=== PATIENT | female | born 1940 | race Two or more races ===

== ENCOUNTER 2019-10-31 11:51 | Observation (INO) ==
[2019-10-31] MEDS ORDERED: NORMAL SALINE 1,000 ML IV ONE (12:14)
[2019-10-31 12:29] LABS: Hematocrit 33.7 % (37.0-47.0); Hemoglobin 10.4 gm/dL (12.5-16.0); Mean Cell Volume 103.4 fl (78-100); Mean Corpuscular Hemoglobin 31.9 pg (27-31); Mean Corpuscular Hgb Conc 30.9 g/dl (32-36); Mean Platelet Volume 10.1 fl (8-12.5); Neutrophil # 5.1 K/mm3 (1.3-6.0); Neutrophil % 72.2 % (42-75.0); Platelet Count 183 K/mm3 (150-450); Red Blood Count 3.26 M/mm3 (4.2-5.4); Red Cell Distribution Width 14.4 % (11.5-14.0); White Blood Count 7.1 K/mm3 (4.0-10.5)
[2019-10-31 12:43] LABS: Albumin * 3.6 gm/dl (3.4-5.0); Anion Gap 17.3 mmol/L (6.8-13.8); BUN/Creatinine Ratio 29.9 (9.0-21.6); Bilirubin, Total 0.3 mg/dL (0.0-1.1); Ca. Corrected For Albumin 9.4 mg/dL (8.4-10.2); Calcium * 9.4 mg/dL (7.9-10.9); Carbon Dioxide 22.7 mmol/L (24-32.6); Magnesium 1.9 mg/dL (1.2-2.8); Total Protein 6.7 gm/dL (6.2-8.2)
[2019-10-31 13:37] LABS: Urine Appearance Clear (CLEAR); Urine Bilirubin Negative (NEGATIVE); Urine Blood 5 /ul (NEGATIVE); Urine Color Yellow; Urine Ketone Negative (NEGATIVE); Urine Protein 30 mg/dL (NEGATIVE); Urine Urobilinogen Normal (NORMAL); Urine pH 5.5 pH (5.0-7.0)
[2019-10-31 13:38] LABS: Urine Bacteria None Seen; Urine Nitrite Negative (NEGATIVE); Urine RBC 0-5 /hpf (0-5); Urine WBC 0-5 /hpf (0-5)
--- NOTE | 2019-10-31 14:42 | ERNOTE ---
ER Female HPI Date of Service: 10/31/19 Stated Complaint: not eating,diarhea Time Seen by Provider: 10/31/19 11:59 Source: patient Exam Limitations: no limitations Immunizations: IMMUNIZATION HX Immunizations Up to Date Yes History of Influenza Vaccine No Hx Pneumococcal Vaccination No Allergies/Adverse Reactions: Allergies gabapentin Allergy (Intermediate, Verified 10/31/19 12:06) hallucinations Home Medications: HOME MEDICATIONS amlodipine 5 mg tablet 5 mg PO DAILY #90 tab 06/12/19 [Last Taken Unknown] lisinopril 40 mg tablet 40 mg PO DAILY #90 tab 06/12/19 [Last Taken Unknown] pantoprazole 40 mg tablet,delayed release 40 mg PO DAILY #30 tab 06/12/19 [Last Taken Unknown] diclofenac sodium 1 % topical gel 2 g TP QID #100 g 07/17/19 [Last Taken Unknown] folic acid 1 mg tablet 1 mg PO DAILY #90 tab 08/15/19 [Last Taken Unknown] allopurinol 100 mg tablet 100 mg PO DAILY #30 tab 09/08/19 [Last Taken Unknown] furosemide 20 mg tablet 20 mg PO DAILY #90 tab 09/08/19 [Last Taken Unknown] pregabalin 50 mg capsule 50 mg PO BID #60 cap 09/13/19 [Last Taken Unknown] sertraline 50 mg tablet 50 mg PO .COMPLEX #30 tab 09/13/19 [Last Taken Unknown] oxycodone-acetaminophen 5 mg-325 mg tablet 1 tab PO Q4H PRN #120 tab 10/31/19 [Last Taken Unknown] - History of Present Illness Narrative: Patient presents to the ED for nausea, vomiting and weight loss. She cannot eat and has been suffering from worsening weight loss. Has been undergoing w/u for vaginal bleeding with US and need for Bx. She now is vomiting. Some diarrhea. Not eating/drinking. She has chronic shoulder pain that she is complaining of but denies acute abdominal pain. Nothign seems to clearly make this better or worse. Timing: Present: constant, getting worse Quality: Present: moderate Radiation: Present: none Activities at Onset: Present: none Prior Abdominal Problems: Present: other - see narriative Modifying Factors - (Improves): Present: other - nothing Modifying Factors - (Worsens): Present: other - nothing Associated Symptoms: Present: nausea, vomiting. Absent: fever/chills Prior Treatment: Present: recently seen. Absent: currently on antibiotics Review of Systems - Review of Systems Constitutional: Absent: fever EYE: Present: no symptoms reported Respiratory: Absent: shortness of breath Cardiology: Absent: chest pain Gastrointestinal/Abdominal: Present: See HPI Genitourinary: Absent: dysuria Musculoskeletal: Present: See HPI All Other Systems: All systems neg except as marked Medical History (Last Reviewed 10/31/19 @ 14:39 by Henrik Guo MD) Anorexia (Chronic) UTI (urinary tract infection) (Acute) Diarrhea (Acute) Vaginal bleeding (Acute) Systemic lupus erythematosus (SLE) in adult (Chronic) Hyperuricemia (Chronic) Edema (Chronic) 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 History of kidney surgery Onset Date: ~04/2019 fix bleed caused by fall Family History: Family History (Last Reviewed 10/18/19 @ 12:56 by Faye Lopez LPN) Son , ago of 40 due to infections No problems noted. Social History: (Last Reviewed 10/31/19 @ 14:39 by Henrik Guo MD) Social History: household members: none number of children: 4 current occupational status: retired Highest education level completed: Associate degree: academi Service: No Tobacco: Smoking Status: Never smoker Alcohol: alcohol intake: never Substance Use: substance use type: does not use Dietary Habits: caffeine: No Physical Exam - Physical Exam General Appearance: Present: alert, no apparent distress Head Exam: Present: normal inspection, no evidence of injury Eye Exam: Normal inspection: bilateral, PERRL: bilateral Ears, Nose, Throat: Present: dry mucous membranes. Absent: pharyngeal erythema Neck: Present: normal inspection Respiratory: Present: no respiratory distress, normal breath sounds, no accessory muscle use, lungs clear Cardiovascular/Chest: Present: regular rate, rhythm Gastrointestinal/Abdominal: Present: normal bowel sounds, nontender, soft Back Exam: Absent: CVA tenderness (R), CVA tenderness (L) Extremity Exam: Present: pedal edema, other - no deformity Neurological Exam: Present: alert, no motor/sensory deficits Skin Exam: Present: normal color, warm/dry Progress - Results and Orders Patient's Lab Results:: I have reviewed the patient's lab results. - Vital Signs Patient's Vital Signs:: I have reviewed the patient's vital signs. Vital Signs: Vital Signs 10/31/19 12:03 10/31/19 13:03 10/31/19 13:33 Temperature 36.9 C Pulse Rate 64 62 63 Respiratory Rate 15 Blood Pressure 157/61 H 137/63 142/61 O2 Sat by Pulse Oximetry 99 96 97 10/31/19 14:03 Temperature Pulse Rate 61 Respiratory Rate Blood Pressure 144/63 O2 Sat by Pulse Oximetry 96 - Progress/Reassessment Chief Complaint: Genitourinary Problem Progress Note-Subjective: 10/31/19 14:40 Patient given IV fluids. Labs reviewed. Dr Cherry was in the ED and will admit the patient. patient agreeeable Departure Clinical Impression: Dehydration, Vomiting, Weight loss, Vaginal bleeding - Departure Disposition: Still a patient Condition: Fair
[2019-10-31] MEDS ORDERED: DICLOFENAC SODIUM 100 APPL TUBE TP PRN (18:27)
[2019-10-31] MEDS ORDERED: ACETAMINOPHEN 500 MG TABLET PO PRN ×2 (18:27→18:46)
[2019-10-31] MEDS ORDERED: LOPERAMIDE HCL 2 MG CAPSULE PO PRN (18:48)
[2019-10-31] MEDS: NORMAL SALINE 1,000 ML IV PRN (18:48)
--- NOTE | 2019-10-31 18:49 | HP ---
Chief Complaint - Chief Complaint Date of Service: 10/31/19 Time of Service: 18:33 Chief Complaint: post menopausal bleeding, vomiting, dehydration History of Present Illness: Merari Soares is a 79 yo wh. fe. who states she started having occasional uterine bleeding about 18 months ago. It has worsened lately and was dexribed as dark brown blood that she would find coagulated in her underwear in the mornings. It has become larger in volume recently and the past couple of days has had bright red bleeding. Today she called and stated she had been vomiting. I had her come to the ER and her blood work suggests that she is dehyrated, anemic (Hg10.3 grams) but is almost certainly hemoconcentrated. K+ 5.0. Renal status much worse than her baseline with a EGFR of 32. She is admitted for rehydration and correction of her renal insufficiency and electrolytes. I have asked for a Rn Progressive Care Unit consult to do an endometrial biopsy or D&C to diagnose the thickened endometrium seen on pelvic US last week. [place] and [place] on [place] a very difficult problem for her. So getting this postmenopausal bleeding diagnosed and stopped is important to be done this admission. 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) History of fracture of left shoulder (Chronic) Frozen shoulder (Chronic) Raynaud disease (Chronic) Onset Date: Unknown Arthritis (Chronic) Onset Date: Unknown Hypertension (Chronic) Onset Date: Unknown Lupus (Chronic) Onset Date: Unknown Fall Onset Date: ~06/2018 Hemorrhage of kidney Onset Date: ~06/2018 due to fall Surgical History: Surgical History (Last Reviewed 10/31/19 @ 14:55 by Barbra Pack RN) History of cholecystectomy Onset Date: Unknown age of 27 History of colonoscopy Onset Date: ~02/2019 [facility] History of kidney surgery Onset Date: ~04/2019 fix bleed caused by fall Family History: Family History (Last Reviewed 10/18/19 @ 12:56 by Faye Lopez LPN) Son , ago of 40 due to infections No problems noted. Social History: (Last Reviewed 10/31/19 @ 14:55 by Barbra Pack RN) Social History: household members: none number of children: 4 current occupational status: retired Highest education level completed: Associate degree: academi Service: No Tobacco: Smoking Status: Never smoker Alcohol: alcohol intake: never Substance Use: substance use type: does not use Dietary Habits: caffeine: No Review Of Systems (GEN) - Review of Systems Generalized/Overall Review: Present: Weakness EENTM: Present: No Symptoms Reported Respiratory: Present: No Symptoms Reported Cardiac: Present: No Symptoms Reported Abdominal: Present: Abdominal Pain Genitourinary: Present: Other - Post menopausal bleeding Musculoskeletal: Present: No Symptoms Reported Neurological: Present: Depressed, Emotional Problems Skin: Present: No Symptoms Reported Endocrine: Present: No Symptoms Reported Immunizations: IMMUNIZATION HX Immunizations Up to Date Yes History of Influenza Vaccine No Hx Pneumococcal Vaccination No Allergies/Adverse Reactions: Allergies Allergy/AdvReac Type Severity Reaction Status Date / Time gabapentin Allergy Intermediate hallucinati Verified 10/31/19 12:06 ons Home Medications: HOME MEDICATIONS amlodipine 5 mg tablet 5 mg PO DAILY #90 tab 06/12/19 [Last Taken Unknown] lisinopril 40 mg tablet 40 mg PO DAILY #90 tab 06/12/19 [Last Taken Unknown] pantoprazole 40 mg tablet,delayed release 40 mg PO DAILY #30 tab 06/12/19 [Last Taken Unknown] folic acid 1 mg tablet 1 mg PO DAILY #90 tab 08/15/19 [Last Taken Unknown] allopurinol 100 mg tablet 100 mg PO DAILY #30 tab 09/08/19 [Last Taken Unknown] furosemide 20 mg tablet 20 mg PO DAILY #90 tab 09/08/19 [Last Taken Unknown] sertraline 50 mg tablet 50 mg PO .COMPLEX #30 tab 09/13/19 [Last Taken Unknown] Acetaminophen [Tylenol] 500 mg PO Q4H PRN 10/31/19 [Last Taken Unknown] Acetaminophen/Diphenhydramine [Tylenol Pm Ex-Strength Caplet] 2 ea PO HS PRN 10/31/19 [Last Taken Unknown] Diclofenac Sodium 2 g TOPICAL QID PRN 10/31/19 [Last Taken Unknown] Loperamide HCl [Anti-Diarrheal] 2 mg PO PRN PRN 10/31/19 [Last Taken Unknown] Pregabalin [Lyrica] 25 mg PO DAILY 10/31/19 [Last Taken Unknown] oxycodone-acetaminophen 5 mg-325 mg tablet 1 tab PO Q4H PRN #120 tab 10/31/19 [Last Taken Unknown] Exam - Exam Vital Signs: Vital Signs - Last Taken Temp 36.9 C 10/31/19 17:47 Pulse 63 10/31/19 17:47 Resp 20 10/31/19 17:47 BP 155/65 H 10/31/19 17:47 Pulse Ox 97 10/31/19 17:47 Constitutional: Present: Alert, Oriented x3, Cooperative, Well developed, Well nourished, Mild distress, Elderly ENT Exam: Present: normal ENT inspection, hearing grossly normal, pharynx normal, TMs normal, other - Poor dentition Eye Exam: bilateral eye: normal inspection, PERRL, EOMI Neck: Present: non-tender, full range of motion, supple, normal inspection Back Exam: Present: normal inspection, no CVA tenderness, no vertebral tenderness Breasts: Present: Exam deferred, Nontender Respiratory: Present: chest non-tender, lungs clear, normal breath sounds, no respiratory distress, no accessory muscle use Cardiovascular/Chest: Present: normal peripheral pulses, regular rate, rhythm, no chest tenderness, no edema, no gallop, no JVD, no murmur, no rub Peripheral Pulses: carotid (R): 2+, carotid (L): 2+, radial (R): 2+, radial (L): 2+ Abdomen: Present: Normal bowel sounds, soft, nondistended, tender - pelvis, suprapubic tenderness /Rectal: Present: Exam deferred Extremity: Present: normal range of motion Skin Exam: Present: warm/dry, no cyanosis, pallor Neurologic: Present: event promotions coordinator II-XII nml as tested, no motor/sensory deficits, alert, normal mood/affect, oriented x 3 Appearance: Present: appropriate appearance, appropriate insight, neat, no memory impairment, denies illness, disheveled Eye contact: Present: cooperative, good eye contact, normal speech Thoughts: Present: paranoid. Absent: normal mood /affect Diagnostic Studies: Abnormal Lab Results 10/31/19 10/31/19 10/31/19 Range/Units 12:24 12:24 12:50 RBC 3.26 L (4.2-5.4) M/mm3 Hgb 10.4 L (12.5-16.0) gm/dL Hct 33.7 L (37.0-47.0) % MCV 103.4 H (78-100) fl MCH 31.9 H (27-31) pg MCHC 30.9 L (32-36) g/dl RDW 14.4 H (11.5-14.0) % Lymphocytes % 17.7 L (20-51) % Lymphocytes # 1.25 L (1.5-3.5) k/mm3 Potassium 5.0 H D (3.4-4.6) mmol/L Chloride 107 H (97-106) mmol/L Carbon Dioxide 22.7 L (24-32.6) mmol/L Anion Gap 17.3 H (6.8-13.8) mmol/L BUN 52 H D (3-23) mg/dL Creatinine 1.74 H D (0.4-1.4) mg/dL Est GFR (Non-Af Amer) 30 L D (60-130) mL/min BUN/Creatinine Ratio 29.9 H (9.0-21.6) ALT 18 L (19-67) U/L Urine Protein 30 H (NEGATIVE) mg/dL Urine Blood 5 H (NEGATIVE) /ul Laboratory Results WBC 7.1 K/mm3 (4.0-10.5) 10/31/19 12:24 RBC 3.26 M/mm3 (4.2-5.4) L 10/31/19 12:24 Hgb 10.4 gm/dL (12.5-16.0) L 10/31/19 12:24 Hct 33.7 % (37.0-47.0) L 10/31/19 12:24 MCV 103.4 fl (78-100) H 10/31/19 12:24 MCH 31.9 pg (27-31) H 10/31/19 12:24 MCHC 30.9 g/dl (32-36) L 10/31/19 12:24 RDW 14.4 % (11.5-14.0) H 10/31/19 12:24 Plt Count 183 K/mm3 (150-450) 10/31/19 12:24 MPV 10.1 fl (8-12.5) 10/31/19 12:24 Immature Gran % (Auto) 0.30 % (0.001-0.429) 10/31/19 12:24 Immature Gran # (Auto) 0.02 K/mm3 (0.000-0.0310) 10/31/19 12:24 Neutrophils % 72.2 % (42-75.0) 10/31/19 12:24 Lymphocytes % 17.7 % (20-51) L 10/31/19 12:24 Monocytes % 7.1 % (0.0-9) 10/31/19 12:24 Eosinophils % 2.3 % (0.0-3.0) 10/31/19 12:24 Basophils % 0.4 % (0.0-1.0) 10/31/19 12:24 Nucleated RBC % 0.0 k/mm3 (0-1) 10/31/19 12:24 Neutrophils # 5.1 K/mm3 (1.3-6.0) 10/31/19 12:24 Lymphocytes # 1.25 k/mm3 (1.5-3.5) L 10/31/19 12:24 Monocytes # 0.5 k/mm3 (0.0-1.0) 10/31/19 12:24 Eosinophils # 0.2 k/mm3 (0.0-0.7) 10/31/19 12:24 Absolute Basophils 0.0 k/mm3 (0.0-0.1) 10/31/19 12:24 Sodium 142 mmol/L (132-142) 10/31/19 12:24 Plasma Sodium 142 mmol/L (130-142) 10/31/19 12:24 Potassium 5.0 mmol/L (3.4-4.6) H D 10/31/19 12:24 Chloride 107 mmol/L (97-106) H 10/31/19 12:24 Carbon Dioxide 22.7 mmol/L (24-32.6) L 10/31/19 12:24 Anion Gap 17.3 mmol/L (6.8-13.8) H 10/31/19 12:24 BUN 52 mg/dL (3-23) H D 10/31/19 12:24 Creatinine 1.74 mg/dL (0.4-1.4) H D 10/31/19 12:24 Est GFR (Non-Af Amer) 30 mL/min (60-130) L D 10/31/19 12:24 BUN/Creatinine Ratio 29.9 (9.0-21.6) H 10/31/19 12:24 Random Glucose 99 mg/dL (70-110) 10/31/19 12:24 Calcium 9.4 mg/dL (7.9-10.9) 10/31/19 12:24 Calcium Adj for Albumin 9.4 mg/dL (8.4-10.2) 10/31/19 12:24 Magnesium 1.9 mg/dL (1.2-2.8) 10/31/19 12:24 Total Bilirubin 0.3 mg/dL (0.0-1.1) 10/31/19 12:24 AST 28 U/L (0-48) 10/31/19 12:24 ALT 18 U/L (19-67) L 10/31/19 12:24 Alkaline Phosphatase 94 U/L (50-170) 10/31/19 12:24 Total Protein 6.7 gm/dL (6.2-8.2) 10/31/19 12:24 Albumin 3.6 gm/dl (3.4-5.0) 10/31/19 12:24 Lipase 94 U/L (73-393) 10/31/19 12:24 Urine Color Yellow 10/31/19 12:50 Urine Appearance Clear (CLEAR) 10/31/19 12:50 Urine pH 5.5 pH (5.0-7.0) 10/31/19 12:50 Ur Specific [place] 1.020 SP.GR. (1.005-1.010) 10/31/19 12:50 Urine Protein 30 mg/dL (NEGATIVE) H 10/31/19 12:50 Urine Glucose (UA) Negative mg/dL (NEGATIVE) 10/31/19 12:50 Urine Ketones Negative mg/dL (NEGATIVE) 10/31/19 12:50 Urine Blood 5 /ul (NEGATIVE) H 10/31/19 12:50 Urine Nitrate Negative (NEGATIVE) 10/31/19 12:50 Urine Bilirubin Negative mg/dl (NEGATIVE) 10/31/19 12:50 Prot Sulfosalicylic Acd 1+ mg/dL (0) 10/31/19 12:50 Urine Urobilinogen Normal EU/dl (NORMAL) 10/31/19 12:50 Ur Leukocyte Esterase Negative /ul (NEGATIVE) 10/31/19 12:50 Urine RBC 0-5 /hpf (0-5) 10/31/19 12:50 Urine WBC 0-5 /hpf (0-5) 10/31/19 12:50 Ur Epithelial Cells 0-5 /hpf (0-5) 10/31/19 12:50 Urine Bacteria None seen (NONE) 10/31/19 12:50 Urine Culture Comments Culture to follow 10/31/19 12:50 Assessment/Plan - Narrative Narrative: Rehdrate through the night and recheck lab in the morning Consult Dr. mauricio for endometrial bx. or D&C. Orders written. - Assessment/Plan (1) Vaginal bleeding Problem: Acute (2) Endometrial thickening on ultrasound Problem: Acute (3) Vomiting Problem: Acute Qualifiers: Vomiting type: bilious vomiting Nausea presence: with nausea Qualified Code(s): R11.14 - Bilious vomiting (4) Dehydration Problem: Acute (5) Weight loss Problem: Acute (6) Anorexia Problem: Chronic
[2019-10-31] MEDS ORDERED: diphenhydrAMINE HCL 25 MG CAPSULE PO PRN (18:52)
--- NOTE | 2019-10-31 20:50 | CONS ---
- Reason for consultation (1) Postmenopausal bleeding Date of Service: 10/31/19 HPI - General Date of Service: 10/31/19 Narrative: 79 year old with PMB. At first the patient thought it was blood in the urine. A week ago the bleeding resolved after a course of antibiotics. A couple of days ago it came back as a nuisance like a light pink stain. The patient denies any cramping. In 1981 the patient had a stroke and lost her left side. Then 10 years ago the patient was diagnosed with lupus. The patient has lost over 100 pounds because she does not eat due to nausea, vomiting and diarrhea. Source: patient Exam Limitations: no limitations - History of Present Illness Timing/Duration: unsure Severity: mild Modifying Factors - (Worsens): Reports: other - none Modifying Factors - (Improves): Reports: other - none Associated Symptoms: loss of appetite, nausea, vomiting Allergies/Adverse Reactions: Allergies gabapentin Allergy (Intermediate, Verified 10/31/19 12:06) hallucinations Home Medications: Home Medications Medication Instructions Recorded Last Taken amlodipine 5 mg tablet 5 mg PO DAILY #90 tab 06/12/19 Unknown lisinopril 40 mg tablet 40 mg PO DAILY #90 tab 06/12/19 Unknown pantoprazole 40 mg tablet,delayed 40 mg PO DAILY #30 tab 06/12/19 Unknown release folic acid 1 mg tablet 1 mg PO DAILY #90 tab 08/15/19 Unknown allopurinol 100 mg tablet 100 mg PO DAILY #30 tab 09/08/19 Unknown furosemide 20 mg tablet 20 mg PO DAILY #90 tab 09/08/19 Unknown sertraline 50 mg tablet 50 mg PO .COMPLEX #30 tab 09/13/19 Unknown Acetaminophen [Tylenol] 500 mg PO Q4H PRN 10/31/19 Unknown Acetaminophen/Diphenhydramine 2 ea PO HS PRN 10/31/19 Unknown [Tylenol Pm Ex-Strength Caplet] Diclofenac Sodium 2 g TOPICAL QID PRN 10/31/19 Unknown Loperamide HCl [Anti-Diarrheal] 2 mg PO PRN PRN 10/31/19 Unknown Pregabalin [Lyrica] 25 mg PO DAILY 10/31/19 Unknown oxycodone-acetaminophen 5 mg-325 1 tab PO Q4H PRN #120 tab 10/31/19 Unknown mg tablet Medications - Medications Current Medications: Current Medications Sodium Chloride (Sodium Chloride 0.9%) 1,000 mls @ 125 mls/hr IV .Q8H PRN PRN Reason: HYDRATION Stop: 11/30/19 18:28 Last Admin: 10/31/19 18:48 Dose: 125 mls/hr Documented by: Review of Systems - Review of Systems Generalized/Overall Review: Present: Weight loss EENTM: Present: No Symptoms Reported Respiratory: Present: No Symptoms Reported Cardiac: Present: No Symptoms Reported Abdominal: Present: No Symptoms Reported, Nausea, Vomiting. Absent: Abdominal Pain Genitourinary: Present: Other - vaginal bleeding Musculoskeletal: Present: No Symptoms Reported Neurological: Present: No Symptoms Reported Skin: Present: No Symptoms Reported Endocrine: Present: No Symptoms Reported Physical Examination - Exam Vital Signs: Vital Signs - Last Taken Temp 36.9 C 10/31/19 17:47 Pulse 63 10/31/19 17:47 Resp 20 10/31/19 17:47 BP 155/65 H 10/31/19 17:47 Pulse Ox 97 10/31/19 17:47 O2 Oxygen Delivery Method Room Air Constitutional: Present: Alert, Oriented x3, Cooperative, No distress ENT Exam: Present: other - the patient appears hard of hearing Eye Exam: bilateral eye: normal inspection Neck: Present: supple, normal inspection Breasts: Present: Exam deferred Respiratory: Present: lungs clear, normal breath sounds Cardiovascular/Chest: Present: regular rate, rhythm Abdomen: Present: soft, nontender, nondistended /Rectal: Present: Exam deferred Extremity: Present: non-tender, no calf tenderness Skin Exam: Present: normal color, warm/dry, no cyanosis Lymphatic: Present: no adenopathy Appearance: Present: appropriate appearance Eye contact: Present: normal speech Thoughts: Present: no apparent hallucination - Results and Findings: Lab/Microbiology results last 24 hrs: Abnormal/Pending Laboratory Last 24 HRS 10/31/19 10/31/19 10/31/19 12:50 12:24 12:24 RBC 3.26 L Hgb 10.4 L Hct 33.7 L MCV 103.4 H MCH 31.9 H MCHC 30.9 L RDW 14.4 H Lymphocytes % 17.7 L Lymphocytes # 1.25 L Potassium 5.0 H D Chloride 107 H Carbon Dioxide 22.7 L Anion Gap 17.3 H BUN 52 H D Creatinine 1.74 H D Est GFR (Non-Af Amer) 30 L D BUN/Creatinine Ratio 29.9 H ALT 18 L Urine Protein 30 H Urine Blood 5 H - Assessments/Findings (1) Postmenopausal bleeding Diagnosis(s): I attempted to explain the patient her diagnosis. She is tangential in her thinking and was fixated on her experience with a prior colonoscopy. She reports that a medication was used that caused to have hallucinations. I discussed with Merari her options. I explained that on her pelvic ultrasound the lining of the uterus was thickened and because of this I need to rule out either a precancerous change or cancer within the uterus. One option is to perf orm an endometrial biopsy in the office versus performing a hysteroscopy, endometrial sampling. The patient reports that due to her prior bad experience with a prior colonoscopy she cannot trust people to be "put under." She understands that the endometrial biopsy in the office could be potentially nondiagnostic and she wishes to proceed with biopsy. Will arrange for patient to have an EMB in the office tomorrow. A total of 45 minutes was spent with the patient Problem: Acute PMFSH - Past Medical History PMFSH Narrative: Lupus anorexia nausea, vomiting, diarrhea hyperuricemia HTN Raynaud's Surgical history: Psychiatric history: Reports: no pertinent history Hx Para: VII Abortions (spontaneous & elective): 3 Patient : No Family history: - Social History Smoking Status: Never smoker Second hand exposure: No Alcohol intake: never Substance use type: does not use Housing: house Household members: none Service: No History of recent travel: No Current occupational status: retired Current occupational exposures/hazards: No
[2019-11-01] MEDS: ONDANSETRON 8 MG TAB.RAPDIS PO PRN ×2 (02:00→10:39)
[2019-11-01] MEDS: NORMAL SALINE 1,000 ML IV PRN (03:01)
[2019-11-01] MEDS: oxyCODONE HCL/ACETAMINOPHEN 1 TAB TABLET PO PRN (05:33)
[2019-11-01 07:01] LABS: Hematocrit 38.3 % (37.0-47.0); Hemoglobin 11.5 gm/dL (12.5-16.0); Mean Cell Volume 106.7 fl (78-100); Mean Platelet Volume 10.3 fl (8-12.5); Neutrophil # 5.5 K/mm3 (1.3-6.0); Neutrophil % 76.1 % (42-75.0); Platelet Count 168 K/mm3 (150-450); Red Blood Count 3.59 M/mm3 (4.2-5.4); Red Cell Distribution Width 13.9 % (11.5-14.0); White Blood Count 7.2 K/mm3 (4.0-10.5)
[2019-11-01 07:19] LABS: Albumin * 3.4 gm/dl (3.4-5.0); Anion Gap 20.7 mmol/L (6.8-13.8); BUN/Creatinine Ratio 31.5 (9.0-21.6); Bilirubin, Total 0.3 mg/dL (0.0-1.1); Calcium * 8.8 mg/dL (7.9-10.9); Carbon Dioxide 17.5 mmol/L (24-32.6); Potassium 5.2 mmol/L (3.4-4.6); Total Protein 5.9 gm/dL (6.2-8.2)
[2019-11-01] MEDS: FOLIC ACID 1 MG TABLET PO SCH (10:37)
[2019-11-01] MEDS: ALLOPURINOL 100 MG TABLET PO SCH (10:37)
[2019-11-01] MEDS: FUROSEMIDE 20 MG TABLET PO SCH (10:38)
[2019-11-01] MEDS: amLODIPine BESYLATE 5 MG TABLET PO SCH (10:38)
[2019-11-01] MEDS: PREGABALIN 25 MG CAPSULE PO SCH (10:39)
[2019-11-01] MEDS: SERTRALINE HCL 50 MG TABLET PO SCH (10:39)
[2019-11-01] MEDS: LISINOPRIL 40 MG TABLET PO SCH (10:40)
[2019-11-01] MEDS: PANTOPRAZOLE SODIUM 40 MG TABLET.EC PO SCH (10:41)
--- NOTE | 2019-11-01 15:44 | OR ---
Operative Report - Dictated Report Narrative: Procedure Note Procedure: endometrial biopsy Description of the procedure: The patient was transported to & for examination to be able to use a bed with stirrups. A sterile speculum was placed in the patient's vagina. There was a spoonful of blood in the vault. A single toothed tenaculum was placed on the anterior lip of the cervix. The endometrial pipelle was inserted and the uterus sounded to 10 cm. A total of 3 passes were done. All instruments were removed from the patient's vagina and the patient tolerated the procedure well. EBL: minimal Complications: none Await results of the biopsy
--- NOTE | 2019-11-01 18:57 | PN ---
Subjective - Date and Time Seen Date: 11/01/19 Time: 12:00 Subjective Narrative: Nursing reports that Merari had an uneventful night. The he reports however that she had vomiting at midnight, 2 AM, and again at 5 AM. She was quite confused this morning but seemed to be more lucid at noon hour. This morning she was refusing to do the endometrial biopsy procedure but at noon she agreed to do it. She was taken to OB and the endometrial biopsy was done by Dr. Scott. I do not have any information on that yet. Her lab work has improved with 2 L of fluid improving her EGFR from 30-45. Just before going over to OB this afternoon she had a very large liquid bowel movement that created mass. She says this is a reoccurring theme and is never been diagnosed or effectively treated. This evening she has eaten supper and has not had any nausea or vomiting. [place] go [place] and does not have transportation as her family lives a long distances away. Therefore she will have to stay tonight and will dismiss her tomorrow morning to go back to her home pending further investigation of her GI issues and of her endometrial abnormalities and postmenopausal bleeding. Objective - Review of Systems Generalized/Overall Review: Reports: Weakness, Fatigue EENTM: Reports: No Symptoms Reported Respiratory: Reports: No Symptoms Reported Cardiac: Reports: No Symptoms Reported Abdominal: Reports: Nausea, Vomiting, Diarrhea Genitourinary Symptoms: Reports: No Symptoms Reported Musculoskeletal Complaints: Reports: No Symptoms Reported Neurological: Reports: No Symptoms Reported Skin: Reports: No Symptoms Reported Endocrine: Reports: No Symptoms Reported - Vitals Vitals: Last Vital Signs Temp 37.2 C 11/01/19 18:24 Pulse 72 11/01/19 18:24 Resp 16 11/01/19 18:24 BP 125/68 11/01/19 18:24 Pulse Ox 98 11/01/19 18:24 - Abnormal Lab Findings Abnormal Lab Findings: Abnormal Lab Results 11/01/19 11/01/19 Range/Units 06:50 06:50 RBC 3.59 L (4.2-5.4) M/mm3 Hgb 11.5 L (12.5-16.0) gm/dL MCV 106.7 H (78-100) fl MCH 32.0 H (27-31) pg MCHC 30.0 L (32-36) g/dl Neutrophils % 76.1 H (42-75.0) % Lymphocytes % 15.8 L (20-51) % Lymphocytes # 1.13 L (1.5-3.5) k/mm3 Potassium 5.2 H (3.4-4.6) mmol/L Chloride 109 H (97-106) mmol/L Carbon Dioxide 17.5 L (24-32.6) mmol/L Anion Gap 20.7 H (6.8-13.8) mmol/L BUN 39 H (3-23) mg/dL Est GFR (Non-Af Amer) 45 L D (60-130) mL/min BUN/Creatinine Ratio 31.5 H (9.0-21.6) ALT 18 L (19-67) U/L Total Protein 5.9 L (6.2-8.2) gm/dL - Exam Constitutional: Present: Alert, Oriented x3, Cooperative, Well developed, Well nourished, No distress ENT Exam: Present: normal ENT inspection, hearing grossly normal, pharynx normal, TMs normal Neck: Present: non-tender, full range of motion, supple, normal inspection Breasts: Present: Exam deferred, Nontender, Discharge Respiratory: Present: chest non-tender, lungs clear, normal breath sounds Cardiovascular/Chest: Present: normal peripheral pulses, regular rate, rhythm, no chest tenderness, no edema, no gallop, no JVD, no murmur, no rub Abdomen: Present: Normal bowel sounds, soft, nontender, nondistended, no rebound tenderness, no hepatospenomegaly, no masses, tender - Right upper quadrant and midepigastrium /Rectal: Present: Exam deferred Extremity: Present: normal range of motion, non-tender, normal inspection, no pedal edema, no calf tenderness, normal capillary refill Skin Exam: Present: normal color, warm/dry, no cyanosis Lymphatic: Present: no adenopathy Neurologic: Present: automated teller manager II-XII nml as tested, normal cerebellar test, no motor/sensory deficits, alert, normal mood/affect, oriented x 3 Appearance: Present: appropriate appearance, appropriate insight, neat, no memory impairment Eye contact: Present: cooperative, good eye contact, normal speech, avoids eye contact Thoughts: Present: normal thought pattern, no apparent hallucination Assessment/Plan Plan Narrative: 1. Monitor through the night for more diarrhea and/or vomiting. 2. Recheck morning lab 3. I will speak with Dr. Scott in the morning about her findings. - Problems/Diagnosis (1) Vaginal bleeding Problem: Acute (2) Endometrial thickening on ultrasound Problem: Acute (3) Vomiting Problem: Acute Qualifiers: Vomiting type: bilious vomiting Nausea presence: with nausea Qualified Code(s): R11.14 - Bilious vomiting (4) Dehydration Problem: Acute (5) Weight loss Problem: Acute (6) Anorexia Problem: Chronic (7) Diarrhea Problem: Acute Qualifiers: Diarrhea type: unspecified type Qualified Code(s): R19.7 - Diarrhea, unspecified
[2019-11-02] MEDS: oxyCODONE HCL/ACETAMINOPHEN 1 TAB TABLET PO PRN ×2 (02:23→07:50)
[2019-11-02 06:30] LABS: Hematocrit 35.2 % (37.0-47.0); Hemoglobin 11.1 gm/dL (12.5-16.0); Mean Cell Volume 100.9 fl (78-100); Mean Corpuscular Hemoglobin 31.8 pg (27-31); Mean Corpuscular Hgb Conc 31.5 g/dl (32-36); Mean Platelet Volume 10.1 fl (8-12.5); Neutrophil # 5.4 K/mm3 (1.3-6.0); Neutrophil % 72.4 % (42-75.0); Platelet Count 189 K/mm3 (150-450); Red Blood Count 3.49 M/mm3 (4.2-5.4); Red Cell Distribution Width 13.9 % (11.5-14.0); White Blood Count 7.5 K/mm3 (4.0-10.5)
[2019-11-02 06:53] LABS: Albumin * 3.1 gm/dl (3.4-5.0); Anion Gap 15.3 mmol/L (6.8-13.8); BUN/Creatinine Ratio 26.5 (9.0-21.6); Bilirubin, Total 0.3 mg/dL (0.0-1.1); Ca. Corrected For Albumin 9.4 mg/dL (8.4-10.2); Carbon Dioxide 22.7 mmol/L (24-32.6); Total Protein 5.6 gm/dL (6.2-8.2)
--- NOTE | 2019-11-02 08:14 | DS ---
(1) Vaginal bleeding Problem: Acute (2) Endometrial thickening on ultrasound Problem: Acute (3) Vomiting Problem: Acute Qualifiers: Vomiting type: bilious vomiting Nausea presence: with nausea Qualified Code(s): R11.14 - Bilious vomiting (4) Dehydration Problem: Resolved (5) Weight loss Problem: Chronic (6) Anorexia Problem: Chronic (7) Diarrhea Problem: Chronic Qualifiers: Diarrhea type: unspecified type Qualified Code(s): R19.7 - Diarrhea, unspecified Date of Discharge:: 11/02/19 Hospital Course: Merari Soares is a 79-year-old admitted for intractable vomiting and dehydration as well as postmenopausal vaginal bleeding. She received 2 L of IV fluids and her EGFR has improved from 30 on admission to 50 this morning. She had 1 large diarrheal stool yesterday just before going for her endometrial biopsy. The biopsy was performed by Dr. Scott in the OB unit where they had a drop-down t able. Biopsy results are still pending. She had some confusion yesterday morning but that seemed to clear by midday when I saw her. She has eaten breakfast this morning and there is been no vomiting. She has significantly improved with just rehydration. [id number] for home health: Merari Sweeney is confined to home due to generalized weakness, episodic diarrhea, and recurring episodes of vomiting. She also has been having postmenopausal vaginal bleeding which will be did not need to be monitored. The need for group home is for monitoring her hydration status, nutritional status, do cumenting the frequency of her nausea with vomiting and diarrhea, and monitoring the amount of vaginal bleeding that she is having. The need for physical therapy is for limb strengthening and improved endurance. She does not need occupational therapy or speech therapy. The need for home health care skilled services is directly related to the time spent [id number] with the person. Procedures Performed: see notes below List Procedures: Endometrial biopsy by Dr. Scott Care Plan Goals: Definitive treatment plan for her postmenopausal bleeding will be determined by the results of the biopsy. If it is malignant that she will need to be referred to the [place]. If it is hyperplasia or chest dysplasia then it will be managed locally. Results and Findings: Lab Pending Results 10/31/19 12:24: WBC 7.1, RBC 3.26 L, Hgb 10.4 L, Hct 33.7 L, MCV 103.4 H, MCH 3 1.9 H, MCHC 30.9 L, RDW 14.4 H, Plt Count 183, MPV 10.1, Immature Gran % (Auto) 0.30, Immature Gran # (Auto) 0.02, Neutrophils % 72.2, Lymphocytes % 17.7 L, Monocytes % 7.1, Eosinophils % 2.3, Basophils % 0.4, Nucleated RBC % 0.0, Neutrophils # 5.1, Lymphocytes # 1.25 L, Monocytes # 0.5, Eosinophils # 0.2, Absolute Basophils 0.0 10/31/19 12:24: Sodium 142, Plasma Sodium 142, Potassium 5.0 H D, Chloride 107 H, Carbon Dioxide 22.7 L, Anion Gap 17.3 H, BUN 52 H D, Creatinine 1.74 H D, Est GFR (Non-Af Amer) 30 L D, BUN/Creatinine Ratio 29.9 H, Random Glucose 99, Calcium 9.4, Calcium Adj for Albumin 9.4, Magnesium 1.9, Total Bilirubin 0.3, AST 28, ALT 18 L, Alkaline Phosphatase 94, Total Protein 6.7, Albumin 3.6, Lipase 94 10/31/19 12:50: Urine Color Yellow, Urine Appearance Clear, Urine pH 5.5, Ur Specific [place] 1.020, Urine Protein 30 H, Urine Glucose (UA) Negative, Urine Ketones Negative, Urine Blood 5 H, Urine Nitrate Negative, Urine Bilirubin Negative, Prot Sulfosalicylic Acd 1+, Urine Urobilinogen Normal, Ur Leukocyte Esterase Negative, Urine RBC 0-5, Urine WBC 0-5, Ur Epithelial Cells 0-5, Urine Bacteria None seen, Urine Culture Comments Culture to follow 11/01/19 06:50: WBC 7.2, RBC 3.59 L, Hgb 11.5 L, Hct 38.3, MCV 106.7 H, MCH 32.0 H, MCHC 30.0 L, RDW 13.9, Plt Count 168, MPV 10.3, Immature Gran % (Auto) 0.40, Immature Gran # (Auto) 0.03, Neutrophils % 76.1 H, Lymphocytes % 15.8 L, Monocytes % 5.6, Eosinophils % 1.4, Basophils % 0.7, Nucleated RBC % 0.0, Neutrophils # 5.5, Lymphocytes # 1.13 L, Monocytes # 0.4, Eosinophils # 0.1, Absolute Basophils 0.1 11/01/19 06:50: Sodium 142, Plasma Sodium 142, Potassium 5.2 H, Chloride 109 H, Carbon Dioxide 17.5 L, Anion Gap 20.7 H, BUN 39 H, Creatinine 1.24, Est GFR (Non-Af Amer) 45 L D, BUN/Creatinine Ratio 31.5 H, Random Glucose 79, Calcium 8.8, Calcium Adj for Albumin 9.0, Total Bilirubin 0.3, AST 29, ALT 18 L, Alkalin e Phosphatase 101, Total Protein 5.9 L, Albumin 3.4 11/01/19 14:00: Endometrial Aspiration Spec. sent to path. 11/02/19 06:28: WBC 7.5, RBC 3.49 L, Hgb 11.1 L, Hct 35.2 L, MCV 100.9 H, MCH 31.8 H, MCHC 31.5 L, RDW 13.9, Plt Count 189, MPV 10.1, Immature Gran % (Auto) 0.40, Immature Gran # (Auto) 0.03, Neutrophils % 72.4, Lymphocytes % 16.3 L, Monocytes % 7.6, Eosinophils % 2.8, Basophils % 0.5, Nucleated RBC % 0.0, Neutrophils # 5.4, Lymphocytes # 1.22 L, Monocytes # 0.6, Eosinophils # 0.2, Absolute Basophils 0.0 11/02/19 06:28: Sodium 143 H, Plasma Sodium 143 H, Potassium 5.0 H, Chloride 110 H, Carbon Dioxide 22.7 L, Anion Gap 15.3 H, BUN 30 H, Creatinine 1.13, Est GFR (Non-Af Amer) 50 L, BUN/Creatinine Ratio 26.5 H, Random Glucose 107 D, Calcium 9.0, Calcium Adj for Albumin 9.4, Total Bilirubin 0.3, AST 25, ALT 13 L, Alkaline Phosphatase 83, Total Protein 5.6 L, Albumin 3.1 L Discharge Location: Home Disposition: Home Health Service Home Health Agency: [facility] Home Health Condition: Fair Face to Face Encounter completed per CMS Guidelines: Yes - For home health. Discharge Activity: Activity as tolerated Discharge Diet: General/regular food Referrals: Michel Cherry DO [Primary Care Provider] - Consultation Done:: Dr. Morena Scott Additional Patient Instructions (free text): [facility] HH ongoing, please call and fax discharge information to them. Follow-up with Dr. Scott in 1 week Follow-up with Dr. Cherry in 3 weeks Complete Home Medications List: Complete Home Medication List: amlodipine 5 mg tablet 5 mg PO DAILY #90 tab 06/12/19 lisinopril 40 mg tablet 40 mg PO DAILY #90 tab 06/12/19 pantoprazole 40 mg tablet,delayed release 40 mg PO DAILY #30 tab 06/12/19 folic acid 1 mg tablet 1 mg PO DAILY #90 tab 08/15/19 allopurinol 100 mg tablet 100 mg PO DAILY #30 tab 09/08/19 furosemide 20 mg tablet 20 mg PO DAILY #90 tab 09/08/19 sertraline 50 mg tablet 50 mg PO .COMPLEX #30 tab 09/13/19 Acetaminophen [Tylenol] 500 mg PO Q4H PRN 10/31/19 Acetaminophen/Diphenhydramine [Tylenol Pm Ex-Strength Caplet] 2 ea PO HS PRN 10/31/19 Diclofenac Sodium 2 g TOPICAL QID PRN 10/31/19 Loperamide HCl [Anti-Diarrheal] 2 mg PO PRN PRN 10/31/19 Pregabalin [Lyrica] 25 mg PO DAILY 10/31/19 oxycodone-acetaminophen 5 mg-325 mg tablet 1 tab PO Q4H PRN #120 tab 10/31/19 Ondansetron [Zofran Odt] 8 mg PO Q6H PRN #30 tab.rapdis 11/02/19
[2019-11-02] MEDS: ALLOPURINOL 100 MG TABLET PO SCH (09:36)
[2019-11-02] MEDS: PANTOPRAZOLE SODIUM 40 MG TABLET.EC PO SCH (09:36)
[2019-11-02] MEDS: LISINOPRIL 40 MG TABLET PO SCH (09:36)
[2019-11-02] MEDS: FOLIC ACID 1 MG TABLET PO SCH (09:36)
[2019-11-02] MEDS: amLODIPine BESYLATE 5 MG TABLET PO SCH (09:36)
[2019-11-02] MEDS: PREGABALIN 25 MG CAPSULE PO SCH (09:36)
[2019-11-02] MEDS: FUROSEMIDE 20 MG TABLET PO SCH (09:37)
[2019-11-02] MEDS: SERTRALINE HCL 50 MG TABLET PO SCH (09:37)
[2019-11-02 13:10] VITALS: BP 129/66
== END 2019-11-02 11:05 | disposition home health service (06) ==
LOC: MS 11:51 → ER 11:51 → MS 14:44
PROVIDERS: ADMIT Family Medicine; ATTEND Family Medicine
DX: R11.14 Bilious vomiting; R63.4 Abnormal weight loss; N93.9 Abnormal uterine and vaginal bleeding, unspecified; N95.0 Postmenopausal bleeding; R93.89 Abnormal findings on diagnostic imaging of other specified body structures; R19.7 Diarrhea, unspecified
CPT/HCPCS: 36415; 80053; 81001; 83690; 83735; 85025; 87086; 88305; 88888; 99285; G0378

== ENCOUNTER 2019-11-04 13:36 | Observation (INO) ==
[2019-11-04 14:23] LABS: Hematocrit 32.6 % (37.0-47.0); Hemoglobin 10.1 gm/dL (12.5-16.0); Mean Cell Volume 103.2 fl (78-100); Mean Platelet Volume 10.1 fl (8-12.5); Neutrophil # 4.6 K/mm3 (1.3-6.0); Neutrophil % 59.4 % (42-75.0); Platelet Count 202 K/mm3 (150-450); Red Blood Count 3.16 M/mm3 (4.2-5.4); Red Cell Distribution Width 14.4 % (11.5-14.0); White Blood Count 7.8 K/mm3 (4.0-10.5)
[2019-11-04 14:34] LABS: Prothrombin Time (Patient) 10.8 Seconds (9.1-10.7)
[2019-11-04 14:36] LABS: Albumin * 3.5 gm/dl (3.4-5.0); BUN/Creatinine Ratio 17.4 (9.0-21.6); Bilirubin, Total 0.2 mg/dL (0.0-1.1); Ca. Corrected For Albumin 8.8 mg/dL (8.4-10.2); Calcium * 8.7 mg/dL (7.9-10.9); Carbon Dioxide 23.3 mmol/L (24-32.6); Potassium 5.3 mmol/L (3.4-4.6); Total Protein 6.6 gm/dL (6.2-8.2)
[2019-11-04 14:37] LABS: INR 1.09 INR (0.92-1.08); Partial Thrombolplastin Time 23.6 Seconds (24-32)
[2019-11-04] MEDS ORDERED: NORMAL SALINE 1,000 ML IV ONE (14:49)
[2019-11-04 15:50] LABS: Urine Appearance Clear (CLEAR); Urine Bilirubin Negative (NEGATIVE); Urine Blood Negative /ul (NEGATIVE); Urine Color Yellow; Urine Ketone Negative (NEGATIVE); Urine Nitrite Negative (NEGATIVE); Urine Protein Negative (NEGATIVE); Urine Specific Gravity 1.025 SP.GR. (1.005-1.010); Urine Urobilinogen Normal (NORMAL)
[2019-11-04 15:51] LABS: Urine Amorphous Sediment Few - 1+ (NONE-FEW); Urine Bacteria None Seen; Urine RBC None Seen /hpf (0-5); Urine WBC 0-5 /hpf (0-5)
--- NOTE | 2019-11-04 17:16 | ERNOTE ---
ER Female HPI Date of Service: 11/04/19 Stated Complaint: Decreased urination/Vag bleeding Time Seen by Provider: 11/04/19 13:51 Source: patient Exam Limitations: no limitations Immunizations: IMMUNIZATION HX Immunizations Up to Date Yes History of Influenza Vaccine No Hx Pneumococcal Vaccination No Allergies/Adverse Reactions: Allergies gabapentin Allergy (Intermediate, Verified 11/04/19 13:44) hallucinations Home Medications: HOME MEDICATIONS amlodipine 5 mg tablet 5 mg PO DAILY #90 tab 06/12/19 [Last Taken Unknown] lisinopril 40 mg tablet 40 mg PO DAILY #90 tab 06/12/19 [Last Taken Unknown] pantoprazole 40 mg tablet,delayed release 40 mg PO DAILY #30 tab 06/12/19 [Last Taken Unknown] folic acid 1 mg tablet 1 mg PO DAILY #90 tab 08/15/19 [Last Taken Unknown] allopurinol 100 mg tablet 100 mg PO DAILY #30 tab 09/08/19 [Last Taken Unknown] furosemide 20 mg tablet 20 mg PO DAILY #90 tab 09/08/19 [Last Taken Unknown] sertraline 50 mg tablet 50 mg PO .COMPLEX #30 tab 09/13/19 [Last Taken Unknown] Acetaminophen [Tylenol] 500 mg PO Q4H PRN 10/31/19 [Last Taken Unknown] Acetaminophen/Diphenhydramine [Tylenol Pm Ex-Strength Caplet] 2 ea PO HS PRN 10/31/19 [Last Taken Unknown] Diclofenac Sodium 2 g TOPICAL QID PRN 10/31/19 [Last Taken Unknown] Loperamide HCl [Anti-Diarrheal] 2 mg PO PRN PRN 10/31/19 [Last Taken Unknown] Pregabalin [Lyrica] 25 mg PO DAILY 10/31/19 [Last Taken Unknown] oxycodone-acetaminophen 5 mg-325 mg tablet 1 tab PO Q4H PRN #120 tab 10/31/19 [Last Taken Unknown] Ondansetron [Zofran Odt] 8 mg PO Q6H PRN #30 tab.rapdis 11/02/19 [Last Taken Unknown] - History of Present Illness Narrative: patient presents to ed with c/o decreased urine out put and vaginal bleeding, last week patient had endometrial biopsy with path pending Timing: Present: constant, getting worse Quality: Present: moderate Onset Location: Present: vaginal Radiation: Present: none Activities at Onset: Present: none Prior Abdominal Problems: Present: similar symptoms Sexual [place] History: Present: not active Modifying Factors - (Improves): Present: other - nothing Modifying Factors - (Worsens): Present: other - nothing Associated Symptoms: Present: denies symptoms Prior Treatment: Present: recently seen, treated by physician, recently hospitalized Review of Systems - Review of Systems Constitutional: Present: See HPI, weakness, fatigue, malaise EYE: Present: no symptoms reported ENT: Present: no symptoms reported Respiratory: Present: no symptoms reported Cardiology: Present: no symptoms reported Gastrointestinal/Abdominal: Present: no symptoms reported Genitourinary: Present: See HPI, decreased urinary output, other - vaginal bleeding Musculoskeletal: Present: no symptoms reported Skin: Present: no symptoms reported Neurological: Present: no symptoms reported Endocrine: Present: no symptoms reported Hematologic/Lymphatic: Present: no symptoms reported Psych: Present: no symptoms reported All Other Systems: All systems neg except as marked Medical History (Last Reviewed 11/04/19 @ 13:44 by Niki Snow RN) Anorexia (Chronic) UTI (urinary tract infection) (Acute) Diarrhea (Chronic) Vaginal bleeding (Acute) Systemic lupus erythematosus (SLE) in adult (Chronic) Hyperuricemia (Chronic) Edema (Chronic) 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) History of fracture of left shoulder (Chronic) Frozen shoulder (Chronic) Raynaud disease (Chronic) Onset Date: Unknown Arthritis (Chronic) Onset Date: Unknown Hypertension (Chronic) Onset Date: Unknown Lupus (Chronic) Onset Date: Unknown Fall Onset Date: ~06/2018 Hemorrhage of kidney Onset Date: ~06/2018 due to fall Surgical History: Surgical History (Last Reviewed 11/04/19 @ 13:44 by Niki Snow RN) History of cholecystectomy Onset Date: Unknown age of 27 History of colonoscopy Onset Date: ~02/2019 [facility] History of kidney surgery Onset Date: ~04/2019 fix bleed caused by fall Family History: Family History (Last Reviewed 10/18/19 @ 12:56 by Faye Lopez LPN) Son , ago of 40 due to infections No problems noted. Social History: (Last Reviewed 11/04/19 @ 13:44 by Niki Snow RN) Social History: household members: none number of children: 4 current occupational status: retired current occupational exposures/hazards: No Highest education level completed: Associate degree: academi Service: No Tobacco: Smoking Status: Never smoker second hand exposure: No Alcohol: alcohol intake: never Substance Use: substance use type: does not use Dietary Habits: caffeine: No Physical Exam - Physical Exam General Appearance: Present: mild distress, anxious Head Exam: Present: normal inspection, no evidence of injury Eye Exam: Normal inspection: bilateral, PERRL: bilateral, EOMI: bilateral Ears, Nose, Throat: Present: normal ENT inspection, normal pharynx Neck: Present: normal inspection, nontender Respiratory: Present: no respiratory distress, normal breath sounds, no accessory muscle use, chest nontender, lungs clear Cardiovascular/Chest: Present: regular rate, rhythm, no murmur, normal peripheral pulses Gastrointestinal/Abdominal: Present: normal bowel sounds, nontender, nondistended, soft, no organomegaly Pelvic Exam: Present: other - old blodd in vaginal vault Back Exam: Present: normal inspection, normal range of motion, no CVA tenderness, no vertebral tenderness Extremity Exam: Present: normal inspection, non-tender, normal range of motion, no edema Neurological Exam: Present: alert, oriented, normal mood/affect, no motor/sensory deficits Skin Exam: Present: normal color, warm/dry Lymphatic Exam: Present: no adenopathy Progress - Date and Time Seen: Date and Time: 11/04/19 17:[address] arnett, to admit to observation, - Vital Signs Patient's Vital Signs:: I have reviewed the patient's vital signs. Vital Signs: Vital Signs 11/04/19 13:41 Temperature 37.3 C Pulse Rate 75 Respiratory Rate 20 Blood Pressure 81/49 L O2 Sat by Pulse Oximetry 100 - EKG EKG #1 EKG: NSR - Progress/Reassessment Chief Complaint: Genitourinary Problem Progress:: Unchanged - Transfer of Care Expected Disposition: Admit Plan - Plan Plan: to admit to observation Departure Clinical Impression: Vaginal bleeding, Hyperkalemia - Departure Disposition: Home self-care Condition: Stable Referrals: Michel Cherry DO [Primary Care Provider] -
[2019-11-04] MEDS: NORMAL SALINE 1,000 ML IV PRN (18:57)
[2019-11-04] MEDS ORDERED: DICLOFENAC SODIUM 100 APPL TUBE TP PRN (20:46)
[2019-11-04] MEDS ORDERED: oxyCODONE HCL/ACETAMINOPHEN 1 TAB TABLET PO PRN (20:46)
--- NOTE | 2019-11-04 20:55 | HP ---
Chief Complaint - Chief Complaint Date of Service: 11/04/19 Time of Service: 20:21 Chief Complaint: unable to urinate History of Present Illness: Pt with PMHx of SLE, reynauds, hypertension, and recent endometrial biopsy for postmenopausal bleeding. The biopsy was done earlier this week, and results are not yet complete. ERP reports she has lost 100 pounds in the last year. she reports being unable to urinate since the previous morning, and came to the ED for evaluation. She denied pelvic discomfort. In the ED, she was found to have an CARINA with creatinine of 2.81, GFR of 17, 325 ml in her bladder via bladder scan, hyperkalemia of 5.3. She was admitted for the CARINA. 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) History of fracture of left shoulder (Chronic) Frozen shoulder (Chronic) Raynaud disease (Chronic) Onset Date: Unknown Arthritis (Chronic) Onset Date: Unknown Hypertension (Chronic) Onset Date: Unknown Lupus (Chronic) Onset Date: Unknown Fall Onset Date: ~06/2018 Hemorrhage of kidney Onset Date: ~06/2018 due to fall Surgical History: Surgical History (Last Reviewed 11/04/19 @ 19:32 by Chey Quintanilla RN) History of cholecystectomy Onset Date: Unknown age of 27 History of colonoscopy Onset Date: ~02/2019 [facility] History of kidney surgery Onset Date: ~04/2019 fix bleed caused by fall Family History: Family History (Last Updated 11/04/19 @ 19:33 by Chey Quintanilla RN) Son , ago of 40 due to infections No problems noted. Other No pertinent family history in first degree relatives Social History: (Last Reviewed 11/04/19 @ 19:33 by Chey Quintanilla RN) Social History: household members: none number of children: 4 current occupational status: retired current occupational exposures/hazards: No Highest education level completed: Associate degree: academi Service: No Tobacco: Smoking Status: Never smoker second hand exposure: No Alcohol: alcohol intake: never Substance Use: substance use type: does not use Dietary Habits: caffeine: No Review Of Systems (GEN) - Review of Systems Generalized/Overall Review: Absent: Fever Respiratory: Absent: Cough, Shortness of Breath Cardiac: Absent: Edema Abdominal: Absent: Vomiting Genitourinary: Present: Retention Musculoskeletal: Present: Other - mallet finger of right 3rd digit Neurological: Present: No Symptoms Reported Skin: Present: No Symptoms Reported Immunizations: IMMUNIZATION HX Immunizations Up to Date Yes History of Influenza Vaccine No Hx Pneumococcal Vaccination No Allergies/Adverse Reactions: Allergies Allergy/AdvReac Type Severity Reaction Status Date / Time gabapentin Allergy Intermediate hallucinati Verified 11/04/19 13:44 ons Home Medications: HOME MEDICATIONS amlodipine 5 mg tablet 5 mg PO DAILY #90 tab 06/12/19 [Last Taken Unknown] lisinopril 40 mg tablet 40 mg PO DAILY #90 tab 06/12/19 [Last Taken Unknown] pantoprazole 40 mg tablet,delayed release 40 mg PO DAILY #30 tab 06/12/19 [Last Taken Unknown] folic acid 1 mg tablet 1 mg PO DAILY #90 tab 08/15/19 [Last Taken Unknown] allopurinol 100 mg tablet 100 mg PO DAILY #30 tab 09/08/19 [Last Taken Unknown] furosemide 20 mg tablet 20 mg PO DAILY #90 tab 09/08/19 [Last Taken Unknown] Diclofenac Sodium 2 g TOPICAL QID PRN 10/31/19 [Last Taken Unknown] Pregabalin [Lyrica] 25 mg PO DAILY 10/31/19 [Last Taken Unknown] oxycodone-acetaminophen 5 mg-325 mg tablet 1 tab PO Q4H PRN #120 tab 10/31/19 [Last Taken Unknown] Exam - Exam Vital Signs: Vital Signs - Last Taken Temp 36.9 C 11/04/19 19:14 Pulse 67 11/04/19 19:14 Resp 18 11/04/19 19:14 BP 121/44 11/04/19 19:14 Pulse Ox 99 11/04/19 19:14 Constitutional: Present: Alert, Cooperative, No distress, Elderly Respiratory: Present: lungs clear, normal breath sounds, no respiratory distress Cardiovascular/Chest: Present: regular rate, rhythm Abdomen: Present: soft, tender - generalized Extremity: Absent: lower extremity edema Neurologic: Present: normal mood/affect Eye contact: Present: cooperative, good eye contact Diagnostic Studies: Abnormal Lab Results 11/04/19 11/04/1911/03/20 Range/Units 14:10 14:10 14:10 RBC 3.16 L (4.2-5.4) M/mm3 Hgb 10.1 L (12.5-16.0) gm/dL Hct 32.6 L (37.0-47.0) % MCV 103.2 H (78-100) fl MCH 32.0 H (27-31) pg MCHC 31.0 L (32-36) g/dl RDW 14.4 H (11.5-14.0) % Immature Gran % (Auto) 0.50 H (0.001-0.429) % Immature Gran # (Auto) 0.04 H (0.000-0.0310) K/mm3 Monocytes % 10.1 H (0.0-9) % Eosinophils % 4.3 H (0.0-3.0) % PT 10.8 H (9.1-10.7) Seconds INR (Anticoag Therapy) 1.09 H (0.92-1.08) INR PTT ([place]) 23.6 L (24-32) Seconds Potassium 5.3 H (3.4-4.6) mmol/L Chloride 107 H (97-106) mmol/L Carbon Dioxide 23.3 L (24-32.6) mmol/L Anion Gap 15.0 H (6.8-13.8) mmol/L BUN 49 H D (3-23) mg/dL Creatinine 2.81 H D (0.4-1.4) mg/dL Est GFR (Non-Af Amer) 17 L D (60-130) mL/min 11/04/19 Range/Units 16:23 RBC (4.2-5.4) M/mm3 Hgb (12.5-16.0) gm/dL Hct (37.0-47.0) % MCV (78-100) fl MCH (27-31) pg MCHC (32-36) g/dl RDW (11.5-14.0) % Immature Gran % (Auto) (0.001-0.429) % Immature Gran # (Auto) (0.000-0.0310) K/mm3 Monocytes % (0.0-9) % Eosinophils % (0.0-3.0) % PT (9.1-10.7) Seconds INR (Anticoag Therapy) (0.92-1.08) INR PTT ([place]) (24-32) Seconds Potassium 5.1 H (3.4-4.6) mmol/L Chloride (97-106) mmol/L Carbon Dioxide (24-32.6) mmol/L Anion Gap (6.8-13.8) mmol/L BUN (3-23) mg/dL Creatinine (0.4-1.4) mg/dL Est GFR (Non-Af Amer) (60-130) mL/min Laboratory Results WBC 7.8 K/mm3 (4.0-10.5) 11/04/19 14:10 RBC 3.16 M/mm3 (4.2-5.4) L 11/04/19 14:10 Hgb 10.1 gm/dL (12.5-16.0) L 11/04/19 14:10 Hct 32.6 % (37.0-47.0) L 11/04/19 14:10 MCV 103.2 fl (78-100) H 11/04/19 14:10 MCH 32.0 pg (27-31) H 11/04/19 14:10 MCHC 31.0 g/dl (32-36) L 11/04/19 14:10 RDW 14.4 % (11.5-14.0) H 11/04/19 14:10 Plt Count 202 K/mm3 (150-450) 11/04/19 14:10 MPV 10.1 fl (8-12.5) 11/04/19 14:10 Immature Gran % (Auto) 0.50 % (0.001-0.429) H 11/04/19 14:10 Immature Gran # (Auto) 0.04 K/mm3 (0.000-0.0310) H 11/04/19 14:10 Neutrophils % 59.4 % (42-75.0) 11/04/19 14:10 Lymphocytes % 24.9 % (20-51) 11/04/19 14:10 Monocytes % 10.1 % (0.0-9) H 11/04/19 14:10 Eosinophils % 4.3 % (0.0-3.0) H 11/04/19 14:10 Basophils % 0.8 % (0.0-1.0) 11/04/19 14:10 Nucleated RBC % 0.0 k/mm3 (0-1) 11/04/19 14:10 Neutrophils # 4.6 K/mm3 (1.3-6.0) 11/04/19 14:10 Lymphocytes # 1.93 k/mm3 (1.5-3.5) 11/04/19 14:10 Monocytes # 0.8 k/mm3 (0.0-1.0) 11/04/19 14:10 Eosinophils # 0.3 k/mm3 (0.0-0.7) 11/04/19 14:10 Absolute Basophils 0.1 k/mm3 (0.0-0.1) 11/04/19 14:10 PT 10.8 Seconds (9.1-10.7) H 11/04/19 14:10 INR (Anticoag Therapy) 1.09 INR (0.92-1.08) H 11/04/19 14:10 PTT ([place]) 23.6 Seconds (24-32) L 11/04/19 14:10 Sodium 140 mmol/L (132-142) 11/04/19 14:10 Plasma Sodium 140 mmol/L (130-142) 11/04/19 14:10 Potassium 5.1 mmol/L (3.4-4.6) H 11/04/19 16:23 Chloride 107 mmol/L (97-106) H 11/04/19 14:10 Carbon Dioxide 23.3 mmol/L (24-32.6) L 11/04/19 14:10 Anion Gap 15.0 mmol/L (6.8-13.8) H 11/04/19 14:10 BUN 49 mg/dL (3-23) H D 11/04/19 14:10 Creatinine 2.81 mg/dL (0.4-1.4) H D 11/04/19 14:10 Est GFR (Non-Af Amer) 17 mL/min (60-130) L D 11/04/19 14:10 BUN/Creatinine Ratio 17.4 (9.0-21.6) 11/04/19 14:10 Random Glucose 96 mg/dL (70-110) 11/04/19 14:10 Calcium 8.7 mg/dL (7.9-10.9) 11/04/19 14:10 Calcium Adj for Albumin 8.8 mg/dL (8.4-10.2) 11/04/19 14:10 Total Bilirubin 0.2 mg/dL (0.0-1.1) 11/04/19 14:10 AST 28 U/L (0-48) 11/04/19 14:10 ALT 20 U/L (19-67) 11/04/19 14:10 Alkaline Phosphatase 100 U/L (50-170) 11/04/19 14:10 Total Protein 6.6 gm/dL (6.2-8.2) 11/04/19 14:10 Albumin 3.5 gm/dl (3.4-5.0) 11/04/19 14:10 Urine Color Yellow 11/04/19 15:37 Urine Appearance Clear (CLEAR) 11/04/19 15:37 Urine pH 5.0 pH (5.0-7.0) 11/04/19 15:37 Ur Specific [place] 1.025 SP.GR. (1.005-1.010) 11/04/19 15:37 Urine Protein Negative mg/dL (NEGATIVE) 11/04/19 15:37 Urine Glucose (UA) Negative mg/dL (NEGATIVE) 11/04/19 15:37 Urine Ketones Negative mg/dL (NEGATIVE) 11/04/19 15:37 Urine Blood Negative /ul (NEGATIVE) 11/04/19 15:37 Urine Nitrate Negative (NEGATIVE) 11/04/19 15:37 Urine Bilirubin Negative mg/dl (NEGATIVE) 11/04/19 15:37 Urine Urobilinogen Normal EU/dl (NORMAL) 11/04/19 15:37 Ur Leukocyte Esterase Negative /ul (NEGATIVE) 11/04/19 15:37 Urine RBC None seen /hpf (0-5) 11/04/19 15:37 Urine WBC 0-5 /hpf (0-5) 11/04/19 15:37 Ur Epithelial Cells 0-5 /hpf (0-5) 11/04/19 15:37 Amorphous Sediment Few - 1+ (NONE-FEW) 11/04/19 15:37 Urine Bacteria None seen (NONE) 11/04/19 15:37 Urine Culture Comments No culture indicated 11/04/19 15:37 Blood Type B Positive 11/04/19 14:10 Antibody Screen Negative 11/04/19 14:10 Assessment/Plan - Assessment/Plan (1) Urinary retention Assessment: Patient reports urinary retention, but she may have been unaware of some urination. She does have an CARINA, so we will give her fluids and measure output overnight. Her BUN to creatinine ratio is 17.4, which is intrarenal injury, and not postobstructive. She just had an endometrial biopsy this week for postmenopausal bleeding, and there is possibility that instrumentation may have temporarily altered her sensation. This is less likely however. Potential discharge tomorrow. Problem: Acute (2) Dehydration Assessment: She was just admitted earlier this week for 2 days for intractable vomiting and dehydration. She still appears to be dehydrated on labs today. Will administer fluids overnight, and encouraged p.o. fluid intake as well. Problem: Resolved (3) Postmenopausal bleeding Assessment: She had an endometrial biopsy done this week, and results are pending. Problem: Acute (4) Hyperkalemia Assessment: Potassium was 5.3 today. Chart review shows her potassium was 5 or greater during her recent hospitalization. Will administer fluids and recheck in the morning. This could be coming from her BELLA inhibitor, so we will hold her 40 mg lisinopril. Problem: Acute (5) Acute kidney injury Assessment: Today's creatinine is 2.81, and was 1.3 2 days prior. Her GFR decreased from 50 to 17. Will administer fluids and recheck in the morning. If she does not improve, she may need transfer to a facility with a airport operations coordinator. Problem: Acute (6) Abnormal weight loss Assessment: ERP reports about 100 pound weight loss over the last year. With her postmenopausal bleeding, there is concern for cancer. Endometrial biopsy results pending. If the weights in her chart are correct, she is increased by 11 pounds in 2 days. She has no signs for fluid overload on physical exam. Problem: Chronic (7) Systemic lupus erythematosus (SLE) in adult Problem: Chronic
[2019-11-05] MEDS: NORMAL SALINE 1,000 ML IV PRN (04:11)
[2019-11-05] MEDS ORDERED: DICLOFENAC SODIUM 100 APPL TUBE TP PRN (07:45)
[2019-11-05] MEDS ORDERED: PANTOPRAZOLE SODIUM 40 MG TABLET.EC PO SCH (09:00)
[2019-11-05] MEDS ORDERED: LISINOPRIL 40 MG TABLET PO SCH (09:00)
[2019-11-05] MEDS ORDERED: FOLIC ACID 1 MG TABLET PO SCH (09:00)
[2019-11-05] MEDS ORDERED: PREGABALIN 25 MG CAPSULE PO SCH (09:00)
[2019-11-05] MEDS ORDERED: FUROSEMIDE 20 MG TABLET PO SCH (09:00)
[2019-11-05] MEDS ORDERED: amLODIPine BESYLATE 5 MG TABLET PO SCH (09:00)
[2019-11-05 10:02] LABS: Anion Gap 15.3 mmol/L (6.8-13.8); BUN/Creatinine Ratio 23.8 (9.0-21.6); Bilirubin, Total 0.2 mg/dL (0.0-1.1); Ca. Corrected For Albumin 9.2 mg/dL (8.4-10.2); Calcium * 8.7 mg/dL (7.9-10.9); Carbon Dioxide 20.5 mmol/L (24-32.6); Potassium 4.8 mmol/L (3.4-4.6); Total Protein 5.8 gm/dL (6.2-8.2)
[2019-11-05] MEDS ORDERED: ACETAMINOPHEN 325 MG TABLET PO PRN (10:12)
--- NOTE | 2019-11-05 10:44 | DS ---
(1) Urinary retention Problem: Resolved (2) Dehydration Problem: Resolved (3) Postmenopausal bleeding Problem: Acute (4) Hyperkalemia Problem: Acute (5) Acute kidney injury Problem: Acute (6) Abnormal weight loss Problem: Chronic (7) Systemic lupus erythematosus (SLE) in adult Problem: Chronic Date of Discharge:: 11/05/19 Hospital Course: 31Pt with PMHx of SLE, reynauds, hypertension, and recent endometrial biopsy for postmenopausal bleeding. The biopsy was done earlier this week, and results are not yet complete. ERP reports she has lost 100 pounds in the last year. She reports being unable to urinate since the previous morning, and came to the ED for evaluation. She denied pelvic discomfort. In the ED, she was found to have an CARINA with creatinine of 2.81, GFR of 17, 325 ml in her bladder via bladder scan, hyperkalemia of 5.3. She was admitted for the CARINA. She was able to urinate overnight. AM creatinine had improved to 1.81, and GFR improved to 29. She complained of some pelvic cramping, and recommended tylenol at home. DC'd on 11/05/19, after an overnight stay. Her hyperkalemia may be due to her lisinopril, and she may benefit from an alternate agent for hypertension. Procedures Performed: none Results and Findings: Lab Pending Results 11/04/19 14:10: WBC 7.8, RBC 3.16 L, Hgb 10.1 L, Hct 32.6 L, MCV 103.2 H, MCH 32.0 H, MCHC 31.0 L, RDW 14.4 H, Plt Count 202, MPV 10.1, Immature Gran % (Auto) 0.50 H, Immature Gran # (Auto) 0.04 H, Neutrophils % 59.4, Lymphocytes % 24.9, Monocytes % 10.1 H, Eosinophils % 4.3 H, Basophils % 0.8, Nucleated RBC % 0.0, Neutrophils # 4.6, Lymphocytes # 1.93, Monocytes # 0.8, Eosinophils # 0.3, Absolute Basophils 0.1 11/04/19 14:10: Sodium 140, Plasma Sodium 140, Potassium 5.3 H, Chloride 107 H, Carbon Dioxide 23.3 L, Anion Gap 15.0 H, BUN 49 H D, Creatinine 2.81 H D, Est GFR (Non-Af Amer) 17 L D, BUN/Creatinine Ratio 17.4, Random Glucose 96, Calcium 8.7, Calcium Adj for Albumin 8.8, Total Bilirubin 0.2, AST 28, ALT 20, Alkaline Phosphatase 100, Total Protein 6.6, Albumin 3.5 11/04/19 14:10: PT 10.8 H, INR (Anticoag Therapy) 1.09 H, PTT ([place]) 23.6 L 11/04/19 14:10: Blood Type B Positive, Antibody Screen Negative 11/04/19 15:37: Urine Color Yellow, Urine Appearance Clear, Urine pH 5.0, Ur Specific [place] 1.025, Urine Protein Negative, Urine Glucose (UA) Negative, Urine Ketones Negative, Urine Blood Negative, Urine Nitrate Negative, Urine Bilirubin Negative, Urine Urobilinogen Normal, Ur Leukocyte Esterase Negative, Urine RBC None seen, Urine WBC 0-5, Ur Epithelial Cells 0-5, Amorphous Sediment Few - 1+, Urine Bacteria None seen, Urine Culture Comments No culture indicated 11/04/19 16:23: Potassium 5.1 H 11/05/19 09:31: Sodium 142, Plasma Sodium 143 H, Potassium 4.8 H, Chloride 111 H, Carbon Dioxide 20.5 L, Anion Gap 15.3 H, BUN 43 H, Creatinine 1.81 H D, Est GFR (Non-Af Amer) 29 L D, BUN/Creatinine Ratio 23.8 H, Random Glucose 133 H D, Calcium 8.7, Calcium Adj for Albumin 9.2, Total Bilirubin 0.2, AST 36, ALT 16 L, Alkaline Phosphatase 89, Total Protein 5.8 L, Albumin 3.0 L Discharge Location: Home Disposition: Home self-care Condition: Stable Discharge Activity: Activity as tolerated Discharge Diet: Resume usual diet Referrals: Michel Cherry DO [Primary Care Provider] - One Week Prescriptions (Any new or edited meds): Acetaminophen [Tylenol] 325 mg PO Q6H PRN #30 tab PRN Reason: Mild Pain (Pain Scale 1-3) Transmission Status: Pending to [facility] #[id number] Complete Home Medications List: Complete Home Medication List: amlodipine 5 mg tablet 5 mg PO DAILY #90 tab 06/12/19 lisinopril 40 mg tablet 40 mg PO DAILY #90 tab 06/12/19 pantoprazole 40 mg tablet,delayed release 40 mg PO DAILY #30 tab 06/12/19 folic acid 1 mg tablet 1 mg PO DAILY #90 tab 08/15/19 allopurinol 100 mg tablet 100 mg PO DAILY #30 tab 09/08/19 furosemide 20 mg tablet 20 mg PO DAILY #90 tab 09/08/19 Diclofenac Sodium 2 g TOPICAL QID PRN 10/31/19 Pregabalin [Lyrica] 25 mg PO DAILY 10/31/19 oxycodone-acetaminophen 5 mg-325 mg tablet 1 tab PO Q4H PRN #120 tab 10/31/19 Acetaminophen [Tylenol] 325 mg PO Q6H PRN #30 tab 11/05/19
[2019-11-05 12:47] VITALS: BP 106/41
== END 2019-11-05 12:55 | disposition home health service (06) ==
LOC: MS 13:36 → ER 13:36 → MS 18:30
PROVIDERS: ADMIT Family Medicine; ATTEND Family Medicine
CPT/HCPCS: 36415; 80053; 81001; 84132; 85025; 85610; 85730; 86850; 93005; 96360; 96361; 99284; 99285; G0378